=== PATIENT | female | born 1970 | race Caucasian/White ===

== ENCOUNTER 2023-09-06 18:08 | Emergency (ER) | payer OTHER, SELFPAY ==
[2023-09-06] VITALS (7 sets, daily range): BP systolic 137–194; BP diastolic 72–109; PULSE 63–93; RESP 14–22; TEMP 37; O2SAT 99–100
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
[2023-09-06 18:35] LABS: Abs Immature Grans 0.02 10^3/uL (0.0-0.06); Absolute Basophil Count 0.03 10^3/uL (0.0-0.2); Absolute Eosinophil Count 0.08 10^3/uL (0.0-0.7); Absolute Lymphocyte Count 1.41 10^3/uL (1.2-3.4); Absolute Monocyte Count 0.55 10^3/uL (0.1-0.8); Absolute Neutrophil Count 6.38 10^3/uL (1.2-6.7); Basophils % 0.4; Eosinophils % 0.9; HCT 36.9 % (36.0-46.0); HGB 12.3 g/dL (11.2-15.7); Immature Grans % 0.2; Lymphocytes % 16.6; MCH 30.1 pg (27.0-33.0); MCHC 33.3 % (32.0-36.0); MCV 90 fL (80-95); MPV 10.7 fL (8.0-11.0); Monocytes % 6.5; Neutrophils % 75.4; Platelet Count 212 10^3/uL (130-400); RBC 4.09 10^6/uL (3.93-5.22); RDW 12.6 % (11.7-14.6); RDW-SD 41.4 fL; WBC 8.47 10^3/uL (4.4-10.8)
[2023-09-06 18:54] LABS: ALT 31 U/L (14-59); AST 31 U/L (15-37); Albumin 4.1 g/dL (3.4-5.0); Alkaline Phosphatase 77 U/L (46-116); Anion Gap 10.5 mmol/L (3-11); BUN 24 mg/dL (7-18); Bilirubin, Total 0.2 mg/dL (0.2-1.0); CO2 26.5 mmol/L (21.0-32.0); CREATININE 0.9 mg/dL (0.55-1.02); Calcium 9.8 mg/dL (8.5-10.1); Chloride 99 mmol/L (98-107); Estimated GFR 76.92 (mL/min/1.73m2); Glucose 120 mg/dL (74-106); Potassium 3.5 mmol/L (3.5-5.1); Sodium 136 mmol/L (136-145); Total Protein 8.4 g/dL (6.4-8.2)
[2023-09-06] MEDS: Omnipaque 350 MG/ML 100 ML BTL IJ (19:12)
[2023-09-06] MEDS: Normal Saline Flush 10 ML SYR IVP (19:12)
[2023-09-06] MEDS: Normal Saline - Diluent 50 ML VIAL IJ (19:12)
[2023-09-06] MEDS: Lactated Ringers 1,000 ML 1000 ML IV (19:16)
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
== END 2023-09-06 20:08 | disposition home or self-care (01) ==
PROVIDERS: Emergency Provider Physician Assistant
DX: S06.0XAA Concussion with loss of consciousness status unknown, initial encounter; Y93.55 Activity, bike riding; M79.661 Pain in right lower leg; T07.XXXA Unspecified multiple injuries, initial encounter
CPT/HCPCS: 73552; 74177; 80053; 96360; 99285; 70450; 71260; 72125; 83735; 85025; 99284; J3490